=== PATIENT | male | born 1980 | race Caucasian/White ===

== ENCOUNTER → 2017-12-16 | Outpatient (REF) | payer OTHER ==
[~2017-12-16] MED LIST: CEPH500T7 PO; FAMO20TA28 PO; HYDR-318 PO; HYDR-4309 PO; OXYC-869 PO; PHEN200T32 PO; PROM-110 PO; motrin PO
[2017-12-16 15:05] LABS: PLATELET COUNT, AUTOMATED 238 K/uL (150-450)
== END ==
PROVIDERS: ATTEND Nurse Practitioner Family
DX: R07.9 Chest pain, unspecified (principal)
CPT/HCPCS: 82040; 82247; 82310; 82374; 82435; 82565; 82947; 84075; 84132; 84155; 84295; 84450; 84460; 84484; 84520; 85025